=== PATIENT | female | born 1955 | race Caucasian/White ===

== ENCOUNTER 2018-03-03 09:57 | Emergency (ER) | payer MEDICARE, SELFPAY ==
[2018-03-03 10:06] VITALS: BP 169/93; PULSE 68; RESP 15; TEMP 36.7; O2SAT 99; BMI 16.5
--- NOTE | 2018-03-03 11:15 | ED_ITS ---
HPI - Back Pain/Injury General Chief Complaint: Back Pain/Injury Stated Complaint: back/leg pain Time Seen by Provider: 03/03/18 11:05 Source: patient Limitations: no limitations History of Present Illness HPI Narrative: 63-year-old female comes in for complaint of back pain that is radiating down her left leg. She has a history of sciatica but states she also has rash some itching over the buttock area on the left side as well. Patient has been afebrile. She states pain started over the last couple days she points to the SI joint region and states that really seems to be was bothering her. She states it was sort of swollen before. She states that the pain radiates down to her knee. She feels like her left leg might be a little bit weaker but she is able to get around the house although with difficulty. She urinary incontinence but also in the past. And then bullied episode in since her back pain has flared was that she waited a particularly long time before she tried to get to the bathroom and then it took her a long time to get their secondary to maintain she was able to sit on the toilet Um but did not feel the P coming out and did not feel stool coming out. She has not had any other new accidents or loss of bowel or bladder incontinence this week. She does states she has been scratching at the buttock area pretty regularly Um. She also states that she has had shingles in the past but states that this pain feels different. She has not had any recent back injuries or pain. She does not normally follow with a primary care physician regularly. She did have some Advil prior to arrival which she states did help somewhat. Related Data Previous Rx's Medication Instructions Recorded oxycodone-acetaminophen [Percocet] 1 - 2 tab PO Q4HP PRN #60 tab 01/01/17 cyclobenzaprine 10 mg PO TID PRN #10 tab 03/03/18 meloxicam 7.5 mg PO BID #14 tab 03/03/18 prednisone 50 mg PO DAILY #5 tab 03/03/18 Allergies Allergy/AdvReac Type Severity Reaction Status Date / Time Sulfa (Sulfonamide Allergy Severe Rash Verified 03/03/18 10:06 Antibiotics) [SULFA (SULFONAMIDE ANTIBIOTICS)] Review of Systems Review of Systems All systems reviewed & are unremarkable except as noted in HPI and below Constitutional Denies fever(s) Cardiovascular Denies chest pain, Denies irregular heart rhythm, Denies lightheadedness, Denies palpitations, Denies dyspnea, Denies dyspnea on exertion and Denies orthopnea Respiratory Denies cough, Denies dyspnea, Denies dyspnea on exertion and Denies wheezing Gastrointestinal Gastrointestinal: Denies abdominal pain, Denies change in bowel habits, Denies diarrhea, Denies nausea and Denies vomiting Comments: Patient states did not realize that she had a bowel but was sitting on the toilet when it happened. Genitourinary Reports as per HPI and Reports urinary urgency (Chronically) Musculoskeletal Reports as per HPI, Reports back pain, Reports numbness (Top of left thigh), Reports radiating pain into limb and Denies tingling Integumentary/Breasts Reports rash (Left buttock) Neurologic Reports numbness (Top of left thigh) and Denies tingling Endocrine Denies palpitations Allergic/Immunologic Denies wheezing PFSH Social History Smoking Status: Current every day smoker Exam Initial Vital Signs Initial Vital Signs: Vital Signs Temperature 98.0 F 03/03/18 10:06 Pulse Rate 68 03/03/18 10:06 Respiratory Rate 15 03/03/18 10:06 Blood Pressure 169/93 H 03/03/18 10:06 Pulse Oximetry 99 03/03/18 10:06 Const General: cooperative, well developed and in distress (Mild distress) Nutritional Appearance: well nourished Orientation: alert, awake, oriented x3 and not confused Chest Chest: normal inspection of the chest Resp Effort & Inspection: normal respiratory effort, able to speak in complete sentences, no respiratory distress and no use of accessory muscles Auscultation: clear to auscultation bilaterally, no rales, no rhonchi and no wheezes Cardio Rate: regular rate Rhythm: regular rhythm Heart Sounds: no click, no gallops, no murmurs and no rubs Pulses: normal peripheral pulses GI Inspection: non-distended Palpation: soft, no hepatosplenomegaly, No guarding, No pulsatile mass and No tender Auscultation: normal bowel sounds Rectal Exam: visual inspection normal and normal sphincter tone Back/Spine/Pelvis Back: No back tenderness and No CVA tenderness Cervical Spine: cervical ROM normal, No pain with cervical ROM and No cervical spinal tenderness Thoracic/Lumbar Spine: thoracic and lumbar spine normal to inspection, No thoracic spinal tenderness, No lumbar spinal tenderness and No straight leg raise positive Sacroiliac Joints: tender to palpation left and No pain elicited by passive hyperextension of lower extremity Sacrum: no tenderness Other: Patient was able to roll over in the bed and move about the bed for examination without any issue. Skin Rashes: rashes noted (Patient has erythematous patchy rash which does appear to have some areas of excoriation and scabbing. There is no clear noted but it is in the somewhat dermatomal pattern.) Neuro General: alert, oriented x3, gait normal and no focal motor deficits Speech: speech normal Motor: muscle tone normal throughout and strength 5/5 throughout Sensory Exam: no sensory deficits noted DTR's: Rt Patellar: 2+ and Lt Patellar: 2+ Course Orders Ordered: ED Orders 03/03/18 11:16 CT lumbar spine w con Stat 03/03/18 11:40 Basic Metabolic Panel Stat C-Reactive Protein Quant Stat Complete Blood Count AUTO DIFF Stat Erythrocyte Sedimentation Rate Stat Discontinued Medications Diazepam (Valium) 2 mg PO NOW ONE Stop: 03/03/18 11:16 Last Admin: 03/03/18 11:39 Dose: 2 mg Ketorolac Tromethamine (Toradol) 30 mg IV NOW ONE Stop: 03/03/18 11:16 Last Admin: 03/03/18 11:37 Dose: 30 mg Ketorolac Tromethamine (Toradol) 60 mg IM NOW ONE Stop: 03/03/18 11:16 Last Admin: 03/03/18 11:25 Dose: Not Given Reevaluation(s) Time: 12:55 Vital Signs - 8 hr 03/03/18 13:16 Pulse Rate 78 Blood Pressure [Left Arm] 175/92 H Pulse Oximetry 100 MDM - Back Pain/Injury Lab Data Attestation: I reviewed the patient's lab results. Result diagrams: 03/03/18 11:40 03/03/18 11:40 Lab Results 03/03/18 03/03/18 Range/Units 11:40 11:40 WBC 7.9 (4.5-11.0) X10^3/uL RBC 4.49 (4.0-5.2) X10^6/uL Hgb 16.4 H (12.0-16.0) g/dL Hct 47.1 H (36-46) % MCV 105.0 H (80-100) fL MCH 36.6 H (26-34) PG MCHC 34.9 (30-36) % RDW 13.4 (11.6-14.8) % Plt Count 202 (150-400) X10^3/uL Neut % (Auto) 66.2 (50-75) % Lymph % (Auto) 24.4 L (25-40) % [place] % (Auto) 8.1 (3-14) % Eos % (Auto) 0.7 L (2-4) % Baso % (Auto) 0.6 (0-2) % Neut # (Auto) 5200 (5434-0259) /uL ESR 2 (0-20) MM/HR Sodium 137 (137-145) mmol/L Potassium 3.9 (3.4-5.1) mmol/L Chloride 104 (98-107) mmol/L Carbon Dioxide 23 (22-32) mmol/L BUN 5 L (7-17) mg/dL Creatinine 0.60 (0.52-1.04) mg/dL Estimated GFR > 60.0 (>60) mL/min BUN/Creatinine Ratio 8.3 (6-22) Glucose 86 (80-110) mg/dL Calcium 9.6 (8.4-10.2) mg/dL C-Reactive Protein < 0.5 (<1.0) mg/dL Imaging Data L-spine CT: Radiologist's impression: Patient: Spring Becker MR#: [id number] : 1955 Acct:[id number] Age/Sex: 63 / F Date of Service: 03/03/18 Loc: ED Accession Number: [id number] Procedure: CT lumbar spine w con Ordering Provider: Rosey Tillman D.O. PROCEDURE: CT LUMBAR SPINE W CON INDICATIONS: low back pain with radiation down l leg. rash left buttock TECHNIQUE: After the administration of intravenous Isovue contrast, 3 mm thick sections acquired through the levels of interest. Sagittal and coronal reformats were then constructed. For radiation dose reduction, the following was used: automated exposure control. COMPARISON: None. FINDINGS: Image quality: Excellent. Bones: No acute fracture or dislocation. There is trace L4 on L5 retrolisthesis. No spondylolysis. There are 5 [id number] lumbar vertebral bodies. There is lumbarization of S1-S2. Mild intervertebral disc space narrowing is present at L1-2, L2-3, and L3-4. Severe disc space narrowing, degenerative change, and vacuum disc phenomenon is present at L4-5. Severe disc space narrowing and degenerative changes present at L5-S1. Broad-based disc bulge and marked facet ligamentum flavum hypertrophy at L3-4 results in moderate canal stenosis. No other canal stenosis of the lumbar spine. There is severe left L5-S1 foraminal narrowing and moderate right L4-5 and L5-S1 foraminal narrowing. No other foraminal stenosis. Large Schmorl's nodes are present at the superior T12 and L1 endplates. No wedge compression deformities. There is approximately 15? leftward curvature of the lumbar spine centered at L4. Soft tissues: Visualized portions of the liver, kidneys, pancreas, and spleen are unremarkable. The appendix is thin walled and gas filled. Visualized portions of the bowel demonstrate normal caliber and wall thickness. Dense atheromatous calcifications are present throughout the abdominal aorta and iliac arteries. IMPRESSION: 1. Moderate canal stenosis at L3-4 secondary to broad-based disc bulge and facet and ligamentum flavum hypertrophy. No other significant canal stenosis of the lumbar spine. 2. Severe left foraminal stenosis at L5-S1 and moderate right foraminal narrowing at L4-5 and L5-S1. 3. Mild scoliotic deformity centered at L4. 4. Severe degenerative changes of the lower lumbar spine. 5. Lumbarization of S1-S2. 6. Normal appendix. Dictated by: Alona Camejo M.D. on 03/03/2018 at 12:42 Approved by: Alona Camejo M.D. on 03/03/2018 at 12:49 [facility] Narrative Medical decision making narrative: Patient does have a rash on her buttock and we did discuss possibility of shingles although the rash isn't entirely consistent a loaded somewhat on the lump dermatomal pattern. There is no signs of infection to the rash. Patient states it feels different than when she had shingles. We will continue to watch. Patient was given prednisone as well as medication for pain and muscle relaxation which she has found helpful in the past. We discussed her CT findings and recommended follow-up with Orthopedic surgery for further evaluation. We discussed red flag symptoms and the need for return if these occurred. Discharge Plan Departure Patient Disposition: Home Clinical Impression: Lumbar radiculopathy, Rash Discharge Date/Time: 03/03/18 13:26 Interventions: ED Discharge Assessment Last Done: 03/03/18 13:22 Instructions: DI for Lumbar Radiculopathy Activity Restrictions/Additional Instructions: Follow-up in the next 7-10 days if your not having any improvement of symptoms. Return to the emergency department if her having fevers greater than 100.4 F, loss of bowel or bladder control that is new. No new weakness or numbness or any other new or concerning symptoms. Take medication as prescribed, this medication can make you sleepy so do not drive, perform hazards activities or make any major decisions while taking it. If you're rashes continuing to spread return for evaluation. Prescriptions: New meloxicam 7.5 mg tablet 7.5 mg PO BID Qty: 14 RF: 0 prednisone 50 mg tablet 50 mg PO DAILY Qty: 5 RF: 0 cyclobenzaprine 10 mg tablet 10 mg PO TID PRN (Reason: muscle spasm) Qty: 10 RF: 0 No Action oxycodone-acetaminophen [Percocet] 5 MG/325 MG tablet 1 - 2 tab PO Q4HP PRNQty: 60 RF: 0 Referrals: Serjio Blair MD [Physician] -
[2018-03-03 11:20] VITALS: BP 155/92; PULSE 88; RESP 15; O2SAT 100
[2018-03-03] MEDS: KETOROLAC 60 MG/2 ML VIAL 30 MG IV (11:37)
[2018-03-03] MEDS: diazePAM 2 MG TABLET PO (11:39)
--- NOTE | 2018-03-03 11:54 | PC.NURSE ---
Hx of sciatic pain and fibromyalgia. Pt states that on Sunday she woke up with severe low back pain that radiates down the left buttocks and leg. She has numbness on the top of the leg. The pain extends all across the low back and up into the mid back. She denies any injury. She was picking blackberries the day before, but no other activities that were out of her normal routine. She had an episode of bowel incontinence on . She states she didn't even realize she had a bowel movement. No other episodes of incontinence since then. Severe pain with ambulation. She has been crawling around at home.
[2018-03-03 12:08] LABS: BUN Creatinine Ratio 8.3 (6-22); Blood Urea Nitrogen 5 mg/dL (7-17); Calcium 9.6 mg/dL (8.4-10.2); Carbon Dioxide 23 mmol/L (22-32); Chloride 104 mmol/L (98-107); Estimated Glomerular Filt Rate > 60.0 mL/min (>60); Glucose 86 mg/dL (80-110); HEMOLYSIS < 15 (0-50); Potassium 3.9 mmol/L (3.4-5.1); Sodium 137 mmol/L (137-145)
[2018-03-03 12:10] LABS: C-Reactive Protein Quant < 0.5 mg/dL (<1.0)
[2018-03-03 12:11] LABS: Add Manual Diff / Slide Review NO; Basophils Percent Auto 0.6 % (0-2); Eosinophils Percent Auto 0.7 % (2-4); Hematocrit 47.1 % (36-46); Hemoglobin 16.4 g/dL (12.0-16.0); Lymphocytes Percent Auto 24.4 % (25-40); Mean Corpuscular HGB Conc 34.9 % (30-36); Mean Corpuscular Hemoglobin 36.6 PG (26-34); Monocytes Percent Auto 8.1 % (3-14); Neutrophils Absolute Auto 5200 /uL (3000-5900); Neutrophils Percent Auto 66.2 % (50-75); Platelet Count 202 X10^3/uL (150-400); Red Blood Cell Count 4.49 X10^6/uL (4.0-5.2); Red Cell Distribution Width 13.4 % (11.6-14.8); White Blood Cell Count 7.9 X10^3/uL (4.5-11.0)
[2018-03-03 12:31] LABS: Erythrocyte Sedimentation Rate 2 MM/HR (0-20)
[2018-03-03 13:16] VITALS: BP 175/92; PULSE 78; O2SAT 100
== END 2018-03-03 13:26 | disposition home or self-care (01) ==
PROVIDERS: Emergency Provider Emergency Medicine
DX: M54.16 Radiculopathy, lumbar region (principal); R21 Rash and other nonspecific skin eruption
CPT/HCPCS: 36591; 72132; 80048; 85025; 85651; 86140; 96374; 99282; 99285; J1885; Q9967

== ENCOUNTER → 2018-03-26 09:38 | Outpatient (CLI) | payer MEDICARE, SELFPAY ==
--- NOTE | 2018-03-26 | DI.MRI.S_ITS ---
PROCEDURE: MR LUMBAR SPINE WO CON INDICATIONS: LUMBAR SPINE PAIN TECHNIQUE: Noncontrast sagittal T1 spin echo and T2 fast echo, sagittal STIR, axial T1 and T2 fast spin echo through the lumbar spine. In cases with scoliosis, additional coronal T2 fast spin echo may be performed. COMPARISON: [facility], CT, CT LUMBAR SPINE W CON, 03/03/2018, 12:07. FINDINGS: Image quality: Excellent. Alignment and Curvature: Transitional lumbosacral vertebra is incidentally noted. The spinal segmental level numbering scheme used in this report is dictated on the montage image and the same as on prior CT dated 03/03/18. Trace retrolisthesis of L2 on L3 and grade 1 retrolisthesis of L5 on S1. Bone Marrow: Endplate degenerative signal changes are most pronounced at L4-L5 and L5-S1.. No acute vertebral body compression fractures. Spinal Cord: Conus medullaris terminates at the L1 level. Visualized cord demonstrates normal signal and size. Paraspinous Soft Tissues: No paravertebral masses. L1-L2: Bilateral facet disease. No canal or foraminal stenosis. L2-L3: Left paracentral disc protrusion and bilateral facet arthropathy. Partial effacement of the left lateral recess although no definite posterior displacement of the spinal roots is seen. Moderate left and no right foraminal stenoses. L3-L4: Mild broad-based posterior disc bulge. There is also mild dorsal epidural lipomatosis Bilateral facet arthropathy. Mild partial symmetric effacement of the lateral recesses. There is mild central canal narrowing. No foraminal stenosis. L4-L5: Posterior annular fissure and mild broad-based posterior disc bulge. There is also far right lateral disc circumferential disc bulge. Bilateral facet arthropathy. Associated right sided subarticular narrowing image 24 series 6, which appears to asymmetric posterior displacement descending right L5 nerve root. Severe right and no definite left foraminal stenosis. L5-S1: Broad-based posterior disc bulge mild facet disease. Mild bilateral symmetric lateral recess narrowing. Mild central canal narrowing. Severe left foraminal stenosis and mild right foraminal narrowing S1-S2: No definite canal or foraminal stenosis. Bilateral facet disease. IMPRESSION: No high-grade central canal stenosis. Asymmetric right sided subarticular narrowing at L4-L5 level raising the possibility of impingement of the right L5 nerve root. Please correlate clinically. Additional narrowing of the L2-L3 left lateral recess, however no definite posterior displacement of the spinal roots is identified. Severe right L4-L5 foraminal stenosis. Severe left L5-S1 foraminal narrowing. Transitional lumbosacral vertebra. Please see the spinal segmental levels as depicted on the montage image and used in this report, prior to any surgical intervention. Dictated by: Greg Guillen M.D. on 03/26/2018 at 12:33 Approved by: Greg Guillen M.D. on 03/26/2018 at 12:49
--- NOTE | 2018-03-26 | DI.RAD.S_ITS ---
PROCEDURE: XR CHEST 2V INDICATIONS: COPD TECHNIQUE: 2 views of the chest were acquired. COMPARISON: None. FINDINGS: Surgical changes and devices: None. Lungs and pleura: No pleural effusions or pneumothorax. Lungs are clear. Mediastinum: Mediastinal contours are normal. Heart size is normal. Bones and chest wall: No suspicious bony abnormalities. Possible 3 mm loose body or dystrophic obscuration projecting in the region of the left humeral head head Soft tissues appear unremarkable. IMPRESSION: No acute Cardiopulmonary process. Dictated by: Greg Guillen M.D. on 03/26/2018 at 10:28 Approved by: Greg Guillen M.D. on 03/26/2018 at 10:29
== END ==
PROVIDERS: Visit Provider Orthopaedic Surgery Orthopaedic Surgery of the Spine
DX: M48.07 Spinal stenosis, lumbosacral region (principal); M48.061 Spinal stenosis, lumbar region without neurogenic claudication; M43.16 Spondylolisthesis, lumbar region; J44.9 Chronic obstructive pulmonary disease, unspecified; M54.5 Low back pain
CPT/HCPCS: 71046; 72148; 93005